=== PATIENT | male | born 1980 | race Caucasian/White ===

== ENCOUNTER 2016-05-01 19:16 | Emergency (ER) | payer OTHER ==
[~2016-05-01] VITALS: Ht 180.3 cm; Wt 97.5 kg
[~2016-05-01 19:16] MED LIST: AUGMENTIN 875 M1 TAB PO; BACTRIM DS 8001 TA1 PO; BENADRYL50 MG PO; BIAXIN500 MG PO; CEPHALEXIN500 M1 PO; CLARITIN10 MG PO; CLINDAMYCIN HC300 MG PO; CLONIDINE HCL0.1 MG PO; DARVOCET N 1001 TAB PO; DAYPRO600 M1 PO; FLEXERIL10 MG PO; HYDROCODONE BIT1 T11 PO; KEFLEX500 MG PO; LIDEX 0.05% CRE15 GM T; LIDEX0.05% T; MOTRIN400 MG PO; MOTRIN800 MG PO; Motrin,Rufen800 MG PO; NAPROSYN500 MG PO; NKHM; PARAFON FORTE500 MG PO; PHENERGAN W/ DE30 ML PO; PREDNICOT10 MG PO; PROAIR HFA0.09 MG/AC INH; PYRIDIUM200 MG PO; SUBOXONE 8 MG-1 EACH SL; SUBOXONE 8 MG-21 TA2 SL; TRAMADOL HCL50 MG PO; VIBRAMYCIN100 MG PO; VICODIN 5/500 505 MG PO; VICODIN ES 7501 TAB PO; VOLTAREN50 M1 PO; VOLTAREN75 MG PO; ZITHROMAX Z PA250 MG PO
[2016-05-01] MEDS ORDERED: SUBOXONE 4 MG-1 EACH SL (19:22)
[2016-05-01 20:10] LABS: HEMATOCRIT 42.3 % (42.0-52.0); HEMOGLOBIN 14.5 g/dl (14.0-18.0); MEAN CELL VOLUME 87.4 fl (80.0-94.0); MEAN CORPUSCULAR HGB CONC 34.3 g/dl (33.0-37.0); MEAN PLATELET VOLUME 9.6 fl (9.6-12.3); PLATELET COUNT AUTOMATED 262 10*3/uL (130-400); RED BLOOD COUNT 4.84 10*6/uL (4.50-5.90); RED CELL DISTRI WIDTH 12.1 % (0-14.5); WHITE BLOOD COUNT 13.4 10*3/uL (4.8-10.8)
[2016-05-01 20:28] LABS: ALBUMIN 3.8 gm/dl (3.1-4.5); ALKALINE PHOSPHATASE 94 U/L (45-117); BILIRUBIN, TOTAL 0.5 mg/dl (0.2-1.0); BUN 11 mg/dl (7-24); CARBON DIOXIDE 20 mmol/L (21-32); CHLORIDE 108 mmol/L (98-107); EST GLOM FILT AFRICAN AMERICAN > 60 ml/min; GLUCOSE 94 mg/dL (65-99); POTASSIUM 3.8 mmol/L (3.5-5.1); SGOT/AST 49 IU/L (3-35); SGPT/ALT 120 U/L (12-78); SODIUM 141 mmol/L (136-145); TOTAL PROTEIN 8.1 gm/dL (6.4-8.2)
[2016-05-01 20:28] LABS: BILIRUBIN NEGATIVE (NEGATIVE); BLOOD 3+ (NEGATIVE); CLARITY SL CLOUDY (CLEAR); COLOR YELLOW (YELLOW); GLUCOSE NEGATIVE (NEGATIVE); KETONE NEGATIVE (NEGATIVE); LEUKO ESTERASE NEGATIVE (NEGATIVE); NITRITE NEGATIVE (NEGATIVE); PH 5.5 (5.0-9.0); PROTEIN 1+ (NEGATIVE); SPECIFIC GRAVITY >= 1.030 (1.005-1.030)
[2016-05-01 20:31] LABS: BASOPHIL # 0.1 10*3/uL (0-0.1); BASOPHILS 1 % (0-1); LYMPHOCYTE # 7.2 10*3/uL (1.3-4.4); MONOCYTE # 1.1 10*3/uL (0.1-1.0); NEUTROPHILS 37 % (47-73); TOTAL CELLS COUNTED 100 #CELLS
[2016-05-01 20:32] LABS: PLATELET SUFFICIENCY NORMAL (NORMAL)
[2016-05-01 20:38] LABS: RBC TNTC rbc/hpf (0-2); URINE REFLEX COMMENT YES (NO)
[2016-05-01] MEDS ORDERED: NAPROSYN500 MG PO (21:38)
[2016-05-01] MEDS ORDERED: FLOMAX0.4 MG PO (21:38)
[2016-05-01] MEDS ORDERED: ZOFRAN4 MG PO (21:38)
== END 2016-05-01 21:45 | disposition home or self-care (01) ==
LOC: ED 19:16
PROVIDERS: Nurse Practitioner Family
DX: N20.0 Calculus of kidney (principal); N13.30 Unspecified hydronephrosis; R03.0 Elevated blood-pressure reading, without diagnosis of hypertension; F17.200 Nicotine dependence, unspecified, uncomplicated; Z88.0 Allergy status to penicillin; Z91.018 Allergy to other foods; Z79.899 Other long term (current) drug therapy; Z87.442 Personal history of urinary calculi

== ENCOUNTER 2016-05-04 02:54 | Emergency (ER) | payer OTHER ==
[~2016-05-04] VITALS: Ht 180.3 cm; Wt 97.5 kg
[~2016-05-04 02:54] MED LIST changes: +FLOMAX0.4 MG PO; +SUBOXONE 4 MG-1 EACH SL; +ZOFRAN4 MG PO
[2016-05-04] MEDS ORDERED: ANTIBIOTIC (03:00)
[2016-05-04 03:47] LABS: BASO # 0.1 10*3/uL (0.0-0.1); BASO % 0.5 % (0.0-1.0); EOS # 0.2 10*3/uL (0.0-0.4); EOS % 1.6 % (1.0-4.0); HEMATOCRIT 38.9 % (42.0-52.0); HEMOGLOBIN 12.9 g/dl (14.0-18.0); LYMPH % 40.9 % (27.0-41.0); MEAN CELL VOLUME 90.9 fl (80.0-94.0); MEAN CORPUSCULAR HGB 30.1 pg (27.0-31.0); MEAN CORPUSCULAR HGB CONC 33.2 g/dl (33.0-37.0); MEAN PLATELET VOLUME 9.6 fl (9.6-12.3); MONO # 0.6 10*3/uL (0.1-1.0); MONO % 6.4 % (3.0-9.0); NEUT # 4.9 10*3/uL (2.3-7.9); NEUT % 50.4 % (47.0-73.0); PLATELET COUNT AUTOMATED 246 10*3/uL (130-400); RED BLOOD COUNT 4.28 10*6/uL (4.50-5.90); RED CELL DISTRI WIDTH 12.3 % (0-14.5); WHITE BLOOD COUNT 9.7 10*3/uL (4.8-10.8)
[2016-05-04 03:59] LABS: BUN 16 mg/dl (7-24); C-REACTIVE PROTEIN 0.95 MG/DL (0-0.3); CARBON DIOXIDE 26 mmol/L (21-32); CHLORIDE 108 mmol/L (98-107); EST GLOM FILT AFRICAN AMERICAN > 60 ml/min; GLUCOSE 137 mg/dL (65-99); POTASSIUM 3.8 mmol/L (3.5-5.1); SODIUM 143 mmol/L (136-145)
[2016-05-04 05:02] LABS: BILIRUBIN NEGATIVE (NEGATIVE); BLOOD TRACE-INTACT (NEGATIVE); CLARITY CLEAR (CLEAR); COLOR YELLOW (YELLOW); GLUCOSE NEGATIVE (NEGATIVE); KETONE TRACE (NEGATIVE); LEUKO ESTERASE NEGATIVE (NEGATIVE); NITRITE NEGATIVE (NEGATIVE); PROTEIN NEGATIVE (NEGATIVE); SPECIFIC GRAVITY 1.025 (1.005-1.030)
[2016-05-04 05:12] LABS: URINE AMPHETAMINES < 1000 (1000ng/ml); URINE BARBITURATES < 200 (200ng/ml); URINE COCAINE > 300 (300ng/ml)
[2016-05-04 05:15] LABS: URINE REFLEX COMMENT NO (NO); WBC 0-2 wbc/hpf (0-5)
[2016-05-04] MEDS ORDERED: PERCOCET 325 MG1 TA2 PO ×2 (05:55→12:08)
== END 2016-05-04 06:05 | disposition home or self-care (01) ==
LOC: ED 02:54
PROVIDERS: Emergency Medicine Emergency Medical Services
DX: N23 Unspecified renal colic (principal); F12.10 Cannabis abuse, uncomplicated; F17.200 Nicotine dependence, unspecified, uncomplicated; F11.10 Opioid abuse, uncomplicated; F19.10 Other psychoactive substance abuse, uncomplicated; Z88.0 Allergy status to penicillin; Z91.018 Allergy to other foods; Z79.899 Other long term (current) drug therapy; Z87.442 Personal history of urinary calculi

== ENCOUNTER 2016-09-14 15:33 | Emergency (ER) | payer OTHER ==
[~2016-09-14] VITALS: Ht 180.3 cm; Wt 102.1 kg
[~2016-09-14 15:33] MED LIST changes: +ANTIBIOTIC; +PERCOCET 325 MG1 TA2 PO
[2016-09-14] MEDS ORDERED: Motrin,Rufen800 MG PO (17:33)
== END 2016-09-14 18:43 | disposition home or self-care (01) ==
LOC: ED 15:33
DX: S20.212A Contusion of left front wall of thorax, initial encounter (principal); S90.32XA Contusion of left foot, initial encounter; F17.200 Nicotine dependence, unspecified, uncomplicated; F19.10 Other psychoactive substance abuse, uncomplicated; Z88.0 Allergy status to penicillin; Z91.018 Allergy to other foods; W22.01XA Walked into wall, initial encounter; Y93.55 Activity, bike riding; Y92.89 Other specified places as the place of occurrence of the external cause; Y99.8 Other external cause status

== ENCOUNTER 2017-04-30 15:00 | Emergency (ER) | payer MEDICARE, OTHER ==
[~2017-04-30] VITALS: Wt 99.8 kg
[2017-04-30] MEDS ORDERED: CHLORZOXAZONE500 M2 PO (15:10)
[2017-04-30] MEDS ORDERED: NAPROSYN500 MG PO (15:10)
== END 2017-04-30 16:35 | disposition home or self-care (01) ==
LOC: ED 15:00
DX: M54.5 Low back pain (principal); R03.0 Elevated blood-pressure reading, without diagnosis of hypertension; F17.200 Nicotine dependence, unspecified, uncomplicated; F12.10 Cannabis abuse, uncomplicated; F11.10 Opioid abuse, uncomplicated; E66.9 Obesity, unspecified; Z98.890 Other specified postprocedural states; Z87.442 Personal history of urinary calculi; Z68.29 Body mass index [BMI] 29.0-29.9, adult; Z88.0 Allergy status to penicillin; Z91.018 Allergy to other foods; W00.0XXA Fall on same level due to ice and snow, initial encounter; Y93.89 Activity, other specified; Y92.89 Other specified places as the place of occurrence of the external cause; Y99.9 Unspecified external cause status

== ENCOUNTER 2017-07-21 13:45 | Emergency (ER) | payer MEDICARE, OTHER ==
[~2017-07-21] VITALS: Ht 180.3 cm; Wt 120.7 kg
[~2017-07-21 13:45] MED LIST changes: +CHLORZOXAZONE500 M2 PO
[2017-07-21 15:03] LABS: BASO # 0.1 10*3/uL (0.0-0.1); BASO % 0.6 % (0.0-1.0); EOS # 0.2 10*3/uL (0.0-0.4); EOS % 1.7 % (1.0-4.0); HEMATOCRIT 49.3 % (42.0-52.0); HEMOGLOBIN 16.7 g/dl (14.0-18.0); LYMPH # 4.6 10*3/uL (1.3-4.4); LYMPH % 40.2 % (27.0-41.0); MEAN CELL VOLUME 92.1 fl (80.0-94.0); MEAN CORPUSCULAR HGB 31.2 pg (27.0-31.0); MEAN CORPUSCULAR HGB CONC 33.9 g/dl (33.0-37.0); MEAN PLATELET VOLUME 10.4 fl (9.6-12.3); MONO # 0.7 10*3/uL (0.1-1.0); MONO % 5.8 % (3.0-9.0); NEUT # 5.8 10*3/uL (2.3-7.9); NEUT % 51.3 % (47.0-73.0); PLATELET COUNT AUTOMATED 202 10*3/uL (130-400); RED BLOOD COUNT 5.35 10*6/uL (4.50-5.90); WHITE BLOOD COUNT 11.4 10*3/uL (4.8-10.8)
[2017-07-21 15:17] LABS: ALBUMIN 3.5 gm/dl (3.1-4.5); ALKALINE PHOSPHATASE 92 U/L (45-117); BUN 13 mg/dl (7-24); CHLORIDE 104 mmol/L (98-107); CREATININE 0.99 mg/dL (0.70-1.30); LIPASE 69 U/L (73-393); POTASSIUM 3.9 mmol/L (3.5-5.1); SGOT/AST 103 IU/L (3-35); SGPT/ALT 245 U/L (12-78); SODIUM 137 mmol/L (136-145); TOTAL PROTEIN 7.4 gm/dL (6.4-8.2)
[2017-07-21 16:45] LABS: BILIRUBIN 1+ (NEGATIVE); BLOOD NEGATIVE (NEGATIVE); CLARITY SL CLOUDY (CLEAR); COLOR YELLOW (YELLOW); GLUCOSE NEGATIVE (NEGATIVE); KETONE NEGATIVE (NEGATIVE); LEUKO ESTERASE NEGATIVE (NEGATIVE); NITRITE NEGATIVE (NEGATIVE); SPECIFIC GRAVITY >= 1.030 (1.005-1.030)
[2017-07-21 16:58] LABS: BACTERIA TRACE; CALCIUM OXALATE CRYSTALS 1+; MUCOUS 2+
[2017-07-21] MEDS ORDERED: Motrin,Rufen800 MG PO (18:15)
[2017-07-21 18:35] LABS: WBC 0-2 wbc/hpf (0-5)
== END 2017-07-21 18:16 | disposition home or self-care (01) ==
LOC: ED 13:45
PROVIDERS: Physician Assistant
DX: R10.32 Left lower quadrant pain (principal); F11.10 Opioid abuse, uncomplicated; Z98.890 Other specified postprocedural states; Z79.899 Other long term (current) drug therapy; Z88.0 Allergy status to penicillin

== ENCOUNTER → 2017-08-02 | Outpatient (CLI) | payer MEDICARE, OTHER ==
[2017-08-02 11:29] LABS: BASO # 0.1 10*3/uL (0.0-0.1); BASO % 0.5 % (0.0-1.0); EOS # 0.1 10*3/uL (0.0-0.4); EOS % 1.4 % (1.0-4.0); HEMATOCRIT 47.4 % (42.0-52.0); HEMOGLOBIN 15.9 g/dl (14.0-18.0); LYMPH # 3.6 10*3/uL (1.3-4.4); LYMPH % 36.7 % (27.0-41.0); MEAN CELL VOLUME 92.9 fl (80.0-94.0); MEAN CORPUSCULAR HGB 31.2 pg (27.0-31.0); MEAN CORPUSCULAR HGB CONC 33.5 g/dl (33.0-37.0); MEAN PLATELET VOLUME 10.8 fl (9.6-12.3); MONO # 0.7 10*3/uL (0.1-1.0); MONO % 6.9 % (3.0-9.0); NEUT # 5.4 10*3/uL (2.3-7.9); NEUT % 54.2 % (47.0-73.0); PLATELET COUNT AUTOMATED 210 10*3/uL (130-400); RED CELL DISTRI WIDTH 12.4 % (0-14.5); WHITE BLOOD COUNT 9.9 10*3/uL (4.8-10.8)
[2017-08-02 11:44] LABS: ALBUMIN 3.4 gm/dl (3.1-4.5); BILIRUBIN, DIRECT 0.2 mg/dL (0.0-0.2); BUN 12 mg/dl (7-24); CHLORIDE 104 mmol/L (98-107); CHOLESTEROL 196 mg/dL (<200); CREATININE 0.95 mg/dL (0.70-1.30); POTASSIUM 3.9 mmol/L (3.5-5.1); SGOT/AST 108 IU/L (3-35); SGPT/ALT 219 U/L (12-78); SODIUM 136 mmol/L (136-145); TOTAL PROTEIN 7.2 gm/dL (6.4-8.2); TRIGLYCERIDES 149 mg/dl (<150); VLDL CHOLESTEROL 30 mg/dL (6-40)
[2017-08-02 11:50] LABS: ALKALINE PHOSPHATASE 81 U/L (45-117); FREE T4 0.93 ng/dl (0.76-1.46); HDL CHOLESTEROL 44 mg/dl (40-60); LDL CHOLESTEROL 122 mg/dL (9-159); THYROID STIM HORMONE (HS) 0.893 uIU/ml (0.358-4.75)
[2017-08-02 11:52] LABS: ACT PARTIAL THROMBO TIME 25.3 SECONDS (20.8-31.5); INTERNATIONAL NORM RATIO 0.9 (2.0-3.5)
[2017-08-03 20:08] LABS: HCV LOG10 5.848 (.); HEPATITIS C QNT 705000 IU/mL (.)
== END | disposition home or self-care (01) ==
LOC: LAB 10:21
PROVIDERS: Nurse Practitioner Family
DX: Z13.220 Encounter for screening for lipoid disorders (principal); B19.20 Unspecified viral hepatitis C without hepatic coma; E66.01 Morbid (severe) obesity due to excess calories; R23.3 Spontaneous ecchymoses; R60.9 Edema, unspecified

== ENCOUNTER → 2017-10-24 | Outpatient (CLI) | payer MEDICARE, OTHER | END | disposition home or self-care (01) | LOC: CARD 10-05 15:00 | DX: I37.1 Nonrheumatic pulmonary valve insufficiency (principal); R60.9 Edema, unspecified; Z79.899 Other long term (current) drug therapy ==

== ENCOUNTER → 2017-11-03 | Outpatient (CLI) | payer MEDICARE, OTHER ==
[2017-11-03 16:21] LABS: HEMATOCRIT 45.5 % (42.0-52.0); HEMOGLOBIN 15.6 g/dl (14.0-18.0); MEAN CELL VOLUME 92.1 fl (80.0-94.0); MEAN CORPUSCULAR HGB 31.6 pg (27.0-31.0); MEAN CORPUSCULAR HGB CONC 34.3 g/dl (33.0-37.0); MEAN PLATELET VOLUME 10.8 fl (9.6-12.3); PLATELET COUNT AUTOMATED 221 10*3/uL (130-400); RED BLOOD COUNT 4.94 10*6/uL (4.50-5.90); RED CELL DISTRI WIDTH 12.7 % (0-14.5); WHITE BLOOD COUNT 11.8 10*3/uL (4.8-10.8)
[2017-11-03 16:29] LABS: INTERNATIONAL NORM RATIO 0.9 (2.0-3.5)
[2017-11-03 16:37] LABS: URINE AMPHETAMINES < 1000 (1000ng/ml); URINE BARBITURATES < 200 (200ng/ml); URINE BENZODIAZEPINES < 200 (200ng/ml); URINE CANNABINOIDS (THC) > 50 (50ng/ml); URINE COCAINE < 300 (300ng/ml); URINE METHADONE < 300 (300ng/ml); URINE OPIATES < 300 (300ng/ml)
[2017-11-03 16:38] LABS: URINE PHENCYCLIDINE < 25 (25ng/ml)
[2017-11-03 16:44] LABS: ATYPICAL LYMPHS 3 % (0-0); PLATELET SUFFICIENCY NORMAL (NORMAL); TOTAL CELLS COUNTED 100 #CELLS
[2017-11-03 16:52] LABS: ALBUMIN 3.7 gm/dl (3.1-4.5); ALKALINE PHOSPHATASE 100 U/L (45-117); BILIRUBIN, DIRECT < 0.1 mg/dL (0.0-0.2); BUN 14 mg/dl (7-24); CHLORIDE 106 mmol/L (98-107); CREATININE 1.18 mg/dL (0.70-1.30); POTASSIUM 4.3 mmol/L (3.5-5.1); SGOT/AST 64 IU/L (3-35); SGPT/ALT 138 U/L (12-78); SODIUM 139 mmol/L (136-145); TOTAL PROTEIN 7.4 gm/dL (6.4-8.2)
[2017-11-05 17:06] LABS: HCV LOG10 5.942 (.); HEPATITIS C QNT 875000 IU/mL (.)
== END | disposition home or self-care (01) ==
LOC: LAB 15:08
PROVIDERS: Internal Medicine Gastroenterology
DX: B18.2 Chronic viral hepatitis C (principal); Z79.899 Other long term (current) drug therapy

== ENCOUNTER 2018-08-29 16:37 | Emergency (ER) | payer MEDICARE ==
[~2018-08-29] VITALS: Ht 154.9 cm; Wt 121.1 kg
[2018-08-29 17:16] LABS: BILIRUBIN 2+ (NEGATIVE); BLOOD 3+ (NEGATIVE); CLARITY CLOUDY (CLEAR); COLOR BROWN (YELLOW); GLUCOSE NEGATIVE (NEGATIVE); KETONE TRACE (NEGATIVE); LEUKO ESTERASE NEGATIVE (NEGATIVE); NITRITE POSITIVE (NEGATIVE); PH 6.5 (5.0-9.0); SPECIFIC GRAVITY 1.025 (1.005-1.030)
[2018-08-29 17:26] LABS: RBC TNTC rbc/hpf (0-2)
[2018-08-29 17:55] LABS: BASO # 0.1 10*3/uL (0.0-0.1); BASO % 0.3 % (0.0-1.0); EOS % 0.2 % (1.0-4.0); HEMATOCRIT 48.1 % (42.0-52.0); HEMOGLOBIN 16.4 g/dl (14.0-18.0); LYMPH # 2.6 10*3/uL (1.3-4.4); LYMPH % 17.8 % (27.0-41.0); MEAN CELL VOLUME 92.3 fl (80.0-94.0); MEAN CORPUSCULAR HGB 31.5 pg (27.0-31.0); MEAN CORPUSCULAR HGB CONC 34.1 g/dl (33.0-37.0); MEAN PLATELET VOLUME 10.3 fl (9.6-12.3); MONO # 0.6 10*3/uL (0.1-1.0); MONO % 4.3 % (3.0-9.0); PLATELET COUNT AUTOMATED 200 10*3/uL (130-400); RED BLOOD COUNT 5.21 10*6/uL (4.50-5.90); RED CELL DISTRI WIDTH 12.8 % (0-14.5); WHITE BLOOD COUNT 14.4 10*3/uL (4.8-10.8)
[2018-08-29 18:07] LABS: ALBUMIN 3.9 gm/dl (3.1-4.5); ALKALINE PHOSPHATASE 92 U/L (45-117); BUN 13 mg/dl (7-24); CHLORIDE 108 mmol/L (98-107); CREATININE 0.92 mg/dL (0.70-1.30); LIPASE 38 U/L (73-393); POTASSIUM 4.6 mmol/L (3.5-5.1); SGOT/AST 65 IU/L (3-35); SGPT/ALT 160 U/L (12-78); SODIUM 140 mmol/L (136-145); TOTAL PROTEIN 7.8 gm/dL (6.4-8.2)
[2018-08-29] MEDS ORDERED: FLOMAX0.4 MG PO (20:08)
[2018-08-29] MEDS ORDERED: CEPHALEXIN500 M1 PO (20:08)
[2018-08-29] MEDS ORDERED: IBU800 MG PO (20:08)
[2018-08-29] MEDS ORDERED: ZOFRAN4 MG PO (20:08)
[2018-09-01 16:10] LABS: GONOCOCCUS BY NAA Negative (Negative)
== END 2018-08-29 20:25 | disposition home or self-care (01) ==
LOC: ED 16:37
PROVIDERS: Nurse Practitioner Family
DX: N13.2 Hydronephrosis with renal and ureteral calculous obstruction (principal); N39.0 Urinary tract infection, site not specified; F17.200 Nicotine dependence, unspecified, uncomplicated; Z87.442 Personal history of urinary calculi; Z88.0 Allergy status to penicillin; Z91.018 Allergy to other foods; Z79.899 Other long term (current) drug therapy

== ENCOUNTER 2020-07-15 10:41 | Emergency (ER) | payer MEDICARE, MEDICAID ==
[~2020-07-15] VITALS: Wt 136.1 kg
[~2020-07-15 10:41] MED LIST changes: +IBU800 MG PO
[2020-07-15] MEDS ORDERED: CYCLOBENZAPRINE10 MG PO (15:12)
== END 2020-07-15 15:20 | disposition home or self-care (01) ==
LOC: ED 10:41
DX: S22.41XA Multiple fractures of ribs, right side, initial encounter for closed fracture (principal); F17.200 Nicotine dependence, unspecified, uncomplicated; Z88.0 Allergy status to penicillin; Z91.018 Allergy to other foods; Z79.899 Other long term (current) drug therapy; Z98.890 Other specified postprocedural states; X58.XXXA Exposure to other specified factors, initial encounter; Y93.89 Activity, other specified; Y92.89 Other specified places as the place of occurrence of the external cause; Y99.8 Other external cause status

== ENCOUNTER 2020-12-05 12:57 | Emergency (ER) | payer OTHER ==
[~2020-12-05] VITALS: Wt 952.5 kg
[~2020-12-05 12:57] MED LIST changes: +CYCLOBENZAPRINE10 MG PO
[2020-12-05] MEDS ORDERED: IBU800 MG PO (14:20)
== END 2020-12-05 14:40 | disposition home or self-care (01) ==
LOC: ED 12:57
DX: S90.32XA Contusion of left foot, initial encounter (principal); S99.912A Unspecified injury of left ankle, initial encounter; Z88.0 Allergy status to penicillin; Z91.018 Allergy to other foods; W22.8XXA Striking against or struck by other objects, initial encounter; Y93.89 Activity, other specified; Y92.89 Other specified places as the place of occurrence of the external cause; Y99.8 Other external cause status

== ENCOUNTER 2021-06-23 16:49 | Emergency (ER) | payer MEDICARE ==
[~2021-06-23] VITALS: Wt 113.4 kg
[2021-06-23] MEDS ORDERED: ZITHROMAX250 MG PO (17:17)
[2021-06-23] MEDS ORDERED: CORTISPORIN SUS10 ML OT (17:17)
== END 2021-06-23 17:23 | disposition home or self-care (01) ==
LOC: ED 16:49
DX: H66.91 Otitis media, unspecified, right ear (principal); H60.91 Unspecified otitis externa, right ear; Z88.0 Allergy status to penicillin; Z91.018 Allergy to other foods; Z98.890 Other specified postprocedural states

== ENCOUNTER 2021-12-03 04:03 | Emergency (ER) | payer MEDICARE ==
[~2021-12-03] VITALS: Ht 180.3 cm; Wt 90.7 kg
[~2021-12-03 04:03] MED LIST changes: +CORTISPORIN SUS10 ML OT; +ZITHROMAX250 MG PO
[2021-12-03] MEDS ORDERED: BUPRENORPHINE-1 EAC1 SL (04:15)
[2021-12-03 04:54] LABS: BILIRUBIN 2+ (Negative); BLOOD 3+ (Negative); CLARITY Cloudy (Clear); COLOR Orange (Yellow); GLUCOSE Negative (Negative); KETONE Trace (Negative); LEUKO ESTERASE 1+ (Negative); NITRITE Negative (Negative); PH 5.5 (4.5-8.0); SPECIFIC GRAVITY >= 1.030 (1.001-1.030)
[2021-12-03 05:31] LABS: BACTERIA 1+; FINE GRANULAR CAST 0-2; MUCOUS 1+; RBC TNTC rbc/hpf (0-2)
== END 2021-12-03 05:15 | disposition left against medical advice (07) ==
LOC: ED 04:03
PROVIDERS: Emergency Medicine
DX: R10.9 Unspecified abdominal pain (principal); Z88.0 Allergy status to penicillin; Z91.018 Allergy to other foods; F17.200 Nicotine dependence, unspecified, uncomplicated; Z98.890 Other specified postprocedural states

== ENCOUNTER 2022-04-24 01:42 | Emergency (ER) | payer MEDICARE ==
[~2022-04-24] VITALS: Ht 177.8 cm; Wt 95.3 kg
[~2022-04-24 01:42] MED LIST changes: +BUPRENORPHINE-1 EAC1 SL
[2022-04-24] MEDS ORDERED: NAPROSYN500 MG PO (03:01)
== END 2022-04-24 03:25 | disposition home or self-care (01) ==
LOC: ED 01:42
DX: S09.93XA Unspecified injury of face, initial encounter (principal); Z88.0 Allergy status to penicillin; Z91.018 Allergy to other foods; Z98.890 Other specified postprocedural states; F19.10 Other psychoactive substance abuse, uncomplicated; Y00.XXXA Assault by blunt object, initial encounter; Y93.89 Activity, other specified; Y92.89 Other specified places as the place of occurrence of the external cause; Y99.8 Other external cause status

== ENCOUNTER 2023-01-09 11:50 | Emergency (ER) | payer MEDICARE ==
[~2023-01-09] VITALS: Ht 180.3 cm; Wt 99.8 kg
[2023-01-09] MEDS ORDERED: IBU800 M1 PO (14:49)
== END 2023-01-09 17:12 | disposition home or self-care (01) ==
LOC: ED 11:50
DX: U07.1 COVID-19 (principal); B34.9 Viral infection, unspecified; F31.9 Bipolar disorder, unspecified; F17.200 Nicotine dependence, unspecified, uncomplicated; Z87.442 Personal history of urinary calculi; Z88.0 Allergy status to penicillin; Z91.018 Allergy to other foods; Z79.899 Other long term (current) drug therapy; Z98.890 Other specified postprocedural states